=== PATIENT | female | born 1940 | race Caucasian/White ===

== ENCOUNTER → 2017-10-21 | Emergency (ER) | payer OTHER, BC ==
[~2017-10-21] VITALS: Ht 152.4 cm; Wt 77.1 kg
[~2017-10-21] MED LIST: ATENOLOL25 MG; CALCIUM + D SO1 EACH; DICLOFENAC SODI50 MG PO; FLONASE16 GM; GLIMEPIRIDE2 MG; LEVOTHYROXINE50 MCG; LISINOPRIL5 MG; METFORMIN HCL500 MG; NORFLEX100MG PO; PRAVASTATIN SOD40 MG; RESTORIL22.5 MG
== END | disposition home or self-care (01) ==
LOC: ER 10:18
DX: M54.89 Other dorsalgia (principal)